=== PATIENT | female | born 1980 | race Hispanic/Latino ===

== ENCOUNTER 2017-02-21 16:01 | Emergency (ER) | payer SELFPAY ==
[2017-02-21 17:14] LABS: RAPID GROUP A STREP NEGATIVE (NEGATIVE)
== END 2017-02-21 17:32 | disposition home or self-care (01) ==
LOC: EDH 16:01
DX: R05 Cough (principal); R50.9 Fever, unspecified; Z88.7 Allergy status to serum and vaccine; Z87.442 Personal history of urinary calculi
CPT/HCPCS: 71045; 87804; 87880